=== PATIENT | female | born 1990 | race African-American/Black ===

== ENCOUNTER 2023-12-16 23:45 | Emergency (ER) | payer OTHER ==
[~2023-12-16] VITALS: Ht 172.7 cm; Wt 77.1 kg
[2023-12-17] MEDS ORDERED: NEOMY/BACITRA/POLYMYXIN B OINT UD PACKET TP ONE (00:35)
[2023-12-17] MEDS: NEOMY/BACITRA/POLYMYXIN B OINT UD PACKET TP ONE (00:45)
[2023-12-17 00:47] VITALS: BP 131/76; O2SAT 97
== END 2023-12-17 00:47 | disposition home or self-care (01) ==
LOC: ER 23:58
DX: S91.211A Laceration without foreign body of right great toe with damage to nail, initial encounter (principal); W50.1XXA Accidental kick by another person, initial encounter; Y93.89 Activity, other specified; Y92.89 Other specified places as the place of occurrence of the external cause; Y99.8 Other external cause status
CPT/HCPCS: A4606; A4663